=== PATIENT | male | born 1965 | race Caucasian/White ===

== ENCOUNTER 2017-06-14 11:28 | Emergency (ER) | payer MEDICARE, MEDICAID ==
[~2017-06-14] VITALS: Ht 172.7 cm; Wt 73.0 kg
[~2017-06-14 11:28] MED LIST: AMLO5TAB4 PO; ASPI-1079 PO; ATOR-2 PO; EFAV600T PO; FOLI-43 PO; GEMF600T3 PO; GLIP10TA10 PO; METO50TA5 PO; PIOG30TA27 PO; TRUV PO; ZET10 PO
[2017-06-14 11:59] LABS: BASOPHILS % 0.8 % (0.0-2.0); HEMOGLOBIN. 12.3 g/dL (14.0-18.0); LYMPHOCYTES % 18.3 % (20.0-50.0); MEAN CORPUSCULAR HEMOGLOBIN 33.6 pg (28.0-32.0); MEAN CORPUSCULAR VOLUME 100.9 fL (80.0-94.0); MEAN PLATELET VOLUME 8.6 fl (7.4-10.4); MONOCYTES % 6.6 % (2.0-8.0); NEUTROPHILS % 73.3 % (40.0-76.0); PLATELET 236 x1000/uL (130-400); RED BLOOD CELL COUNT 3.67 mill/uL (4.7-6.1); RED CELL DISTRIBUTION WIDTH 13.2 % (11.6-14.6)
[2017-06-14 12:08] LABS: CARBON DIOXIDE 23 mEq/L (21-32); CHLORIDE 108 mEq/L (98-107)
[2017-06-14 12:14] LABS: PROTHROMBIN TIME 10.6 sec (9.4-11.6)
[2017-06-14 15:37] VITALS: BP 187/99
== END 2017-06-14 15:39 | disposition home or self-care (01) ==
LOC: ER 11:33
DX: E11.649 Type 2 diabetes mellitus with hypoglycemia without coma (principal); E11.22 Type 2 diabetes mellitus with diabetic chronic kidney disease; I12.9 Hypertensive chronic kidney disease with stage 1 through stage 4 chronic kidney disease, or unspecified chronic kidney disease; E78.00 Pure hypercholesterolemia, unspecified; N18.9 Chronic kidney disease, unspecified; Z79.4 Long term (current) use of insulin; Z79.82 Long term (current) use of aspirin
CPT/HCPCS: 36415; 80053; 82962; 85025; 85610; 93005; 99285

== ENCOUNTER 2017-11-13 04:30 | Inpatient (IN) | payer MEDICARE, MEDICAID ==
[~2017-11-13] VITALS: Ht 167.6 cm; Wt 64.9 kg
[~2017-11-13 04:30] MED LIST changes: +METO-539 PO; -METO50TA5 PO
[2017-11-13] MEDS ORDERED: DEXT 10% WATER 1,000 ML IV ONE (04:51)
[2017-11-13 05:15] LABS: BASOPHILS % 0.6 % (0.0-2.0); EOSINOPHILS % 1.1 % (0.0-5.0); HEMATOCRIT. 35.2 % (42.0-52.0); LYMPHOCYTES % 18.9 % (20.0-50.0); MEAN CORPUSCULAR HEMOGLOBIN 34.7 pg (28.0-32.0); MEAN CORPUSCULAR VOLUME 101.8 fL (80.0-94.0); MONOCYTES % 5.9 % (2.0-8.0); NEUTROPHILS % 73.5 % (40.0-76.0); PLATELET 255 x1000/uL (130-400); RED BLOOD CELL COUNT 3.46 mill/uL (4.7-6.1); RED CELL DISTRIBUTION WIDTH 12.5 % (11.6-14.6)
[2017-11-13 05:18] LABS: CHLORIDE 104 mEq/L (98-107)
[2017-11-13 05:22] LABS: ETHANOL BLOOD < 10 mg/dL
[2017-11-13 05:25] LABS: PROTHROMBIN TIME 10.7 sec (9.4-11.6)
[2017-11-13] MEDS ORDERED: ASPIRIN 325MG EC TABLET PO ONE (05:45)
[2017-11-13] MEDS ORDERED: LABETALOL 5MG/ML SYR 20 MG/4 ML SYRINGE IV ONE (05:45)
[2017-11-13] MEDS ORDERED: INSULIN LISPRO 100 UNITS/ML SUBCUT SCH ×3 (08:10→17:40)
[2017-11-13] MEDS ORDERED: ACETAMINOPHEN 325MG TABLET PO PRN (10:30)
[2017-11-13] MEDS ORDERED: DIPHENHYDRAMINE 50MG/ML VIAL IV PRN (10:30)
[2017-11-13] MEDS ORDERED: DEXTROSE 50% WATER 50ML SYRINGE IV PRN (10:30)
[2017-11-13] MEDS ORDERED: CLONIDINE 0.1MG TABLET PO PRN (10:30)
[2017-11-13] MEDS ORDERED: MAGNESIUM/ALUMINUM HYDROXIDE/SIMETHICONE 30ML UDC PO PRN (10:30)
[2017-11-13] MEDS ORDERED: ONDANSETRON HCL 4MG/2ML VIAL IV PRN (10:30)
[2017-11-13] MEDS: GLIPIZIDE 10MG TABLET PO SCH (12:13)
[2017-11-13 16:00] VITALS: BP 110/62
[2017-11-13] MEDS: BLOOD SUGAR DIAGNOSTIC STRIP TEST SCH ×2 (16:34→21:02)
[2017-11-13] MEDS: PIOGLITAZONE 30MG TABLET PO SCH (16:37)
[2017-11-13] MEDS: METOPROLOL TARTRATE 50MG TABLET PO SCH (16:43)
[2017-11-13 17:04] VITALS: BP 110/62
[2017-11-13 17:15] VITALS: BP 110/62
[2017-11-13] MEDS ORDERED: LISI10TA5 PO (17:48)
[2017-11-13] MEDS ORDERED: CALC-959 PO (17:48)
[2017-11-13] MEDS ORDERED: LOSA25TA12 PO (17:48)
[2017-11-13] MEDS ORDERED: FURO80TA3 PO (17:48)
[2017-11-13] MEDS ORDERED: FERR325T6 PO (17:48)
[2017-11-13] MEDS ORDERED: LAMI150T23 PO (17:52)
[2017-11-13] MEDS ORDERED: RITO100T PO (17:52)
[2017-11-13 20:00] VITALS: BP 122/72
[2017-11-13] MEDS ORDERED: ATORVASTATIN CALCIUM 40MG TABLET PO SCH (21:00)
[2017-11-13] MEDS: AMLODIPINE 5MG TABLET PO SCH (21:01)
[2017-11-13] MEDS: SODIUM CHLORIDE 0.9% INJ 3ML FLUSH IVF SCH (21:02)
[2017-11-13] MEDS ORDERED: INSULIN GLARGINE UD 100 UNITS/ML SYR SUBCUT SCH (22:00)
[2017-11-13 23:54] VITALS: BP 129/74
[2017-11-14] VITALS (9 sets, daily range): BP systolic 84–131; BP diastolic 45–70
[2017-11-14] MEDS: BLOOD SUGAR DIAGNOSTIC STRIP TEST SCH ×3 (06:26→16:55)
[2017-11-14] MEDS: SODIUM CHLORIDE 0.9% INJ 3ML FLUSH IVF SCH ×2 (06:33→13:35)
[2017-11-14] MEDS ORDERED: INSULIN LISPRO 100 UNITS/ML SUBCUT SCH (07:10)
[2017-11-14 07:29] LABS: T4 FREE 0.85 ng/dL (0.76-1.46)
[2017-11-14] MEDS: GLIPIZIDE 10MG TABLET PO SCH (08:36)
[2017-11-14] MEDS: PIOGLITAZONE 30MG TABLET PO SCH (08:36)
[2017-11-14] MEDS: AMLODIPINE 5MG TABLET PO SCH (08:36)
[2017-11-14] MEDS: METOPROLOL TARTRATE 50MG TABLET PO SCH ×2 (08:37→17:00)
[2017-11-14] MEDS: INSULIN LISPRO (LOW DOSE) 100 UNITS/ML SUBCUT SCH ×3 (08:40→17:47)
[2017-11-14] MEDS: INSULIN LISPRO 100 UNITS/ML SUBCUT SCH ×3 (08:41→17:47)
[2017-11-14] MEDS ORDERED: LAMIVUDINE 150MG TABLET PO SCH (09:00)
[2017-11-14] MEDS ORDERED: ASPIRIN 81MG TABLET PO SCH (09:00)
[2017-11-14] MEDS ORDERED: GLIPIZIDE 10MG TABLET PO SCH (09:00)
[2017-11-14] MEDS ORDERED: GEMFIBROZIL 600MG TABLET PO SCH (09:00)
[2017-11-14] MEDS ORDERED: RITONAVIR 100 MG TABLET PO SCH (09:00)
[2017-11-14] MEDS ORDERED: EZETIMIBE 10MG TABLET PO SCH (09:00)
[2017-11-14] MEDS ORDERED: PIOGLITAZONE 30MG TABLET PO SCH (09:00)
[2017-11-14] MEDS ORDERED: FOLIC ACID 1MG TABLET PO SCH (09:00)
[2017-11-14 10:28] LABS: CORTISOL 3.2 ucg/dL
[2017-11-14] MEDS ORDERED: COSYNTROPIN 0.25MG/ML VIAL IV NR (15:30)
== END 2017-11-14 19:00 | disposition home or self-care (01) | DRG 637 ==
LOC: ER 04:30 → 8WST 05:02 → EDBEDREQSVC 07:47 → ENRESERV 14:21
PROVIDERS: ADMIT Internal Medicine; ATTEND Internal Medicine
DX: E11.649 Type 2 diabetes mellitus with hypoglycemia without coma (principal); G93.41 Metabolic encephalopathy; N18.4 Chronic kidney disease, stage 4 (severe); E11.22 Type 2 diabetes mellitus with diabetic chronic kidney disease; E11.40 Type 2 diabetes mellitus with diabetic neuropathy, unspecified; E11.319 Type 2 diabetes mellitus with unspecified diabetic retinopathy without macular edema; T38.3X5A Adverse effect of insulin and oral hypoglycemic [antidiabetic] drugs, initial encounter; D64.9 Anemia, unspecified; D75.89 Other specified diseases of blood and blood-forming organs; E78.00 Pure hypercholesterolemia, unspecified; H54.62 Unqualified visual loss, left eye, normal vision right eye; I12.9 Hypertensive chronic kidney disease with stage 1 through stage 4 chronic kidney disease, or unspecified chronic kidney disease; Z79.4 Long term (current) use of insulin; Z82.49 Family history of ischemic heart disease and other diseases of the circulatory system; Y92.89 Other specified places as the place of occurrence of the external cause; Z83.3 Family history of diabetes mellitus; Z95.0 Presence of cardiac pacemaker; Z79.82 Long term (current) use of aspirin; Z79.899 Other long term (current) drug therapy; Z21 Asymptomatic human immunodeficiency virus [HIV] infection status
CPT/HCPCS: 36415; 71045; 80048; 80053; 80061; 82024; 82088; 82533; 82607; 82962; 83036; 83690; 83880; 83921; 84439; 84443; 84484; 85025; 85610; 93005; 93970; 96374; 99291; G0482; J0834; J1815

== ENCOUNTER 2018-05-14 04:03 | Emergency (ER) | payer MEDICARE, MEDICAID ==
[~2018-05-14] VITALS: Ht 172.7 cm; Wt 79.0 kg
[~2018-05-14 04:03] MED LIST changes: +CALC-959 PO; +FERR325T6 PO; +FURO80TA3 PO; -GEMF600T3 PO; +GEMF600T4 PO; -GLIP10TA10 PO; +LAMI150T23 PO; +LISI10TA5 PO; +LOSA25TA12 PO; -PIOG30TA27 PO; +RITO100T PO
[2018-05-14 05:01] LABS: BASOPHILS % 0.6 % (0.0-2.0); EOSINOPHILS % 2.6 % (0.0-5.0); HEMOGLOBIN. 12.3 g/dL (14.0-18.0); LYMPHOCYTES % 20.3 % (20.0-50.0); MEAN CORPUSCULAR HEMOGLOBIN 31.2 pg (28.0-32.0); MEAN CORPUSCULAR VOLUME 93.7 fL (80.0-94.0); MEAN PLATELET VOLUME 8.6 fl (7.4-10.4); MONOCYTES % 9.2 % (2.0-8.0); NEUTROPHILS % 67.3 % (40.0-76.0); PLATELET 196 x1000/uL (130-400); RED BLOOD CELL COUNT 3.95 mill/uL (4.7-6.1); RED CELL DISTRIBUTION WIDTH 12.6 % (11.6-14.6)
[2018-05-14 05:06] LABS: INR 0.9; PROTHROMBIN TIME 9.4 sec (9.1-11.1)
[2018-05-14] MEDS ORDERED: NITROGLYCERIN 0.4MG TABLET SL SL PRN (11:15)
[2018-05-14] MEDS ORDERED: ASPIRIN 325MG EC TABLET PO SCH (11:15)
[2018-05-14] MEDS ORDERED: CLONIDINE 0.1MG TABLET PO PRN (11:15)
[2018-05-14] MEDS ORDERED: IPRATROPIUM/ALBUTEROL 0.5-3(2.5)MG/3ML NEB INH PRN (11:15)
[2018-05-14] MEDS ORDERED: ONDANSETRON HCL 4MG/2ML INJ IV PRN (11:15)
[2018-05-14] MEDS ORDERED: ACETAMINOPHEN 325MG TABLET PO PRN (11:15)
[2018-05-14] MEDS ORDERED: NA PHOS,M-B/NA PHOS,DI-BA ENEMA 118ML PR PRN (11:15)
[2018-05-14] MEDS ORDERED: DOCUSATE SODIUM 100MG CAPSULE PO PRN (11:15)
[2018-05-14] MEDS ORDERED: MAGNESIUM/ALUMINUM HYDROXIDE/SIMETHICONE 30ML UDC PO PRN (11:15)
[2018-05-14] MEDS ORDERED: TRAMADOL 50MG TABLET PO PRN (11:15)
[2018-05-14] MEDS ORDERED: ENOXAPARIN 40MG/0.4ML SYR SUBCUT SCH (11:15)
[2018-05-14] MEDS ORDERED: ZOLPIDEM TARTRATE 5MG TABLET PO PRN (11:15)
[2018-05-14] MEDS ORDERED: GUAIFENESIN 200MG/10ML SUGAR FREE UDC PO PRN (11:15)
[2018-05-14] MEDS ORDERED: AMLODIPINE 10MG TABLET PO SCH (11:15)
[2018-05-14] MEDS ORDERED: DEXTROSE 50% WATER 50ML SYRINGE IV PRN (11:15)
[2018-05-14] MEDS ORDERED: AMLODIPINE 10MG TABLET PO NR (11:30)
[2018-05-14] MEDS ORDERED: BLOOD SUGAR DIAGNOSTIC STRIP TEST SCH (13:00)
[2018-05-14] MEDS ORDERED: INSULIN LISPRO 100 UNITS/ML SUBCUT SCH (13:20)
[2018-05-14 13:30] VITALS: BP 167/92
[2018-05-14] MEDS ORDERED: HYDRALAZINE HCL 50MG TABLET PO SCH (14:00)
[2018-05-14] MEDS ORDERED: FAMOTIDINE 20MG TABLET PO SCH (21:00)
[2018-05-14] MEDS ORDERED: METOPROLOL TARTRATE 25MG TABLET PO SCH (21:00)
[2018-05-26] MEDS ORDERED: SODI650T MT (07:32)
[2018-05-26] MEDS ORDERED: DOLU50TA MT (07:32)
[2018-05-26] MEDS ORDERED: GLIP10TA10 MT (07:32)
[2018-05-26] MEDS ORDERED: DARU1TAB MT (07:32)
[2018-05-26] MEDS ORDERED: GLIP5TAB12 MT (18:07)
== END 2018-05-14 14:09 | disposition left against medical advice (07) ==
LOC: ER 04:03 → EDBEDREQTM 05:25 → EDBEDREQ 05:25 → SUPCPDRO 11:43 → ER 14:09 → CANBEDREQ 17:02
DX: G93.41 Metabolic encephalopathy (principal); E11.649 Type 2 diabetes mellitus with hypoglycemia without coma; I12.9 Hypertensive chronic kidney disease with stage 1 through stage 4 chronic kidney disease, or unspecified chronic kidney disease; N18.9 Chronic kidney disease, unspecified; E11.22 Type 2 diabetes mellitus with diabetic chronic kidney disease; D64.9 Anemia, unspecified; Z79.4 Long term (current) use of insulin
CPT/HCPCS: 36415; 71045; 80048; 80061; 82962; 83036; 93005; 93970; 99285